=== PATIENT | male | born 1975 | race Two or more races ===

== ENCOUNTER 2024-08-07 17:02 | Emergency (ER) | payer MEDICAID, SELFPAY ==
[2024-08-07 17:14] VITALS: BP 189/118; PULSE 100; RESP 16; TEMP 37.1; O2SAT 98
[2024-08-07 17:16] VITALS: BMI 33.6
--- NOTE | 2024-08-07 17:28 | PD.EDMEDCL ---
ED Medical Clearance RME/HPI General Chief complaint: Medical Clearance Stated complaint: MEDICAL CLEARANCE Time Seen by Provider: 08/07/24 17:16 Arrival date/time: 08/07/24 17:02 This is a 49-year-old male that comes into the emergency room with complaints of fpc clearance. Patient has a history of high blood pressure. Patient does report taking his blood pressure medication this morning. Patient's blood pressure arriving was 189/118. Related Information Home Medications ?Medication ?Instructions ?Recorded ?Confirmed ibuprofen 600 mg tablet 600 mg PO Q8H 01/24/22 01/24/22 Held on 01/24/22. Instructions: Resume on 01/25/22. MAY RESUME IBUPROFEN TOMORROW 01/25/2022 Allergies Allergy/AdvReac Type Severity Reaction Status Date / Time No Known Allergies Allergy Verified 08/07/24 17:18 Course Orders Category Date Time Status cloNIDine HCL [Catapres] Med 08/07/24 17:28 Discontinued 0.1 mg PO X1 ONE Vital Signs Vital signs: Vital Signs Temperature 98.7 F 08/07/24 17:14 Pulse Rate 100 08/07/24 17:14 Respiratory Rate 16 08/07/24 17:14 Blood Pressure 189/118 H 08/07/24 17:14 Pulse Oximetry (%) 98 08/07/24 17:14 Oxygen Delivery Method Room Air 08/07/24 17:14 Medical Clearance MDM Narrative MDM Narrative:: Patient was given a dose of clonidine 0.1 mg. Patient's blood pressure did come down. Patient was signed out to custody of [facility]. Patient is free to go home now. Patient states he feels comfortable going home at this time. Patient told to follow-up with his primary provider in 1 to 2 days. Come back to the emergency room symptoms change or worsen. Medications / Prescriptions Medication administrations:: Medication Administration History Discontinued Medications Clonidine (Clonidine Hcl 0.1 Mg Tablet) 0.1 mg PO X1 ONE Stop: 08/07/24 17:29 Last Admin: 08/07/24 17:46 Dose: 0.1 mg Documented By: THERESA Discharge Plan Plan Patient Disposition: HOME (Self Care) Patient condition on transfer: Stable Prescriptions/Referrals Prescriptions/Med Rec: No Action ibuprofen 600 mg Tablet 600 mg PO Q8H Referrals: No Primary/Family,Physician [Primary Care Provider] - In 1 week Problem List Clinical Impression: Medical clearance for incarceration, Hypertension Patient/Caregiver Discharge Instructions Discharge Activity: activity as tolerated Education Materials: ED High Blood Pressure ... Additional Instructions: Follow up with primary provider in 1-2 days. 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
[2024-08-07 17:46] VITALS: BP 189/118; PULSE 100
[2024-08-07] MEDS: cloNIDine HCL 0.1 MG TABLET PO (17:46)
[2024-08-07 18:51] VITALS: BP 165/106
== END 2024-08-07 19:16 | disposition home or self-care (01) ==
PROVIDERS: Emergency Provider Emergency Medicine
DX: Z02.89 Encounter for other administrative examinations (principal); I10 Essential (primary) hypertension
CPT/HCPCS: 99282; A9270